=== PATIENT | male | born 1965 | race Two or more races ===

== ENCOUNTER 2020-10-18 18:39 | Emergency (ER) | payer MEDICAID ==
[~2020-10-18] VITALS: Ht 177.8 cm; Wt 104.3 kg
--- NOTE | 2020-10-18 18:39 | NUR ---
PT BIBRA 839 FROM HOME C/O R HIP PAIN S/P GLF LAST NIGHT. PT IS AAOX4, NOT IN RESPIRATORY DISTRESS, HOOKED TO MARKETING COMMUNICATIONS ASSISTANT, KEPT RESTED AND COMFORTABLE. WILL CONTINUE TO MONITOR.
--- NOTE | 2020-10-18 18:51 | NUR ---
PT SEEN AND EXAMINED BY LEANN LYNCH.
[2020-10-18] MEDS ORDERED: ONDANSETRON HCL/PF 4 MG/2 ML VIAL ONE (18:54)
[2020-10-18] MEDS ORDERED: MORPHINE SULFATE INJ 4 MG/ML DISP.SYRIN ONE (18:55)
[2020-10-18] MEDS ORDERED: MORPHINE SULFATE INJ 2 MG/ML DISP.SYRIN IV ONE (19:00)
[2020-10-18] MEDS ORDERED: ONDANSETRON HCL/PF 4 MG/2 ML VIAL IV ONE (19:00)
--- NOTE | 2020-10-18 19:00 | NUR ---
IV LINE ESTABLISHED BLOOD DRAWN AND SENT TO LAB.
--- NOTE | 2020-10-18 20:28 | NUR ---
PA at the bedside
[2020-10-18] MEDS ORDERED: TRAM50TA2 PO (20:30)
[2020-10-18] MEDS ORDERED: ACET-2605 PO (20:30)
--- NOTE | 2020-10-18 20:45 | NUR ---
Called [facility] for a transportation per pt requested. Spoke Greg with [facility]. Greg informed the ride will be between 30 min to 3 hours. Ref # [id number]. Will call back in 30 min
[2020-10-18 21:39] VITALS: BP 115/60
--- NOTE | 2020-10-18 21:40 | NUR ---
Patient discharged to home in stable condition. Written and verbal after care instructions given. Patient verbalizes understanding of instruction. Pt ambulatory with a steady gait. IV removed. Catheter intact and site benign. Pressure and 4x4 applied to site. No bleeding noted.
== END 2020-10-18 21:40 | disposition home or self-care (01) ==
LOC: ER 18:39
DX: M25.551 Pain in right hip (principal); I10 Essential (primary) hypertension; J44.9 Chronic obstructive pulmonary disease, unspecified; E11.9 Type 2 diabetes mellitus without complications; Z79.899 Other long term (current) drug therapy; W01.0XXA Fall on same level from slipping, tripping and stumbling without subsequent striking against object, initial encounter; Y93.89 Activity, other specified; Y92.89 Other specified places as the place of occurrence of the external cause; Y99.8 Other external cause status
CPT/HCPCS: 73502; 73552; 96374; 96375; 99284; J2270; J2405

== ENCOUNTER 2020-10-23 13:32 | Emergency (ER) | payer MEDICAID ==
[~2020-10-23] VITALS: Ht 175.3 cm; Wt 104.3 kg
[~2020-10-23 13:32] MED LIST: ACET-2605 PO; TRAM50TA2 PO
--- NOTE | 2020-10-23 13:53 | NUR ---
DEQUAN BEAR from Home generalized weakness. High BS-250. On room air, breathing evenly and unlabored. Connected to the monitor and pulse ox. kept comfortable, will continue to monitor accordingly.
[2020-10-23 13:54] LABS: BASOPHILS % (AUTO) 0.5 % (0.0-2.0); EOSINOPHILS % (AUTO) 3.8 % (0.0-6.0); HEMATOCRIT 37 % (39-51); HEMOGLOBIN 11.9 g/dL (13.5-17.5); LYMPHOCYTES # (AUTO) 1.4 /CMM (0.8-4.8); LYMPHOCYTES % (AUTO) 15.5 % (20.0-44.0); MEAN CORPUSCULAR HGB CONC 33 g/dl (31.0-36.0); MEAN CORPUSCULAR VOLUME 88 fL (80-96); MONOCYTES % (AUTO) 11.6 % (2.0-12.0); NEUTROPHILS % (AUTO) 68.6 % (43.0-81.0); PLATELET COUNT (AUTO) 323 /CMM (150-450); RED BLOOD CELL COUNT(AUTO) 4.15 MIL/uL (4.5-6.0); WHITE BLOOD COUNT (AUTO) 8.8 K/uL (4.3-11.0)
[2020-10-23 14:00] LABS: CALCIUM, SERUM 9.1 mg/dL (8.5-10.1); CARBON DIOXIDE 26 mmol/L (21-32); CHLORIDE 100 mmol/L (98-107); CREATININE 0.8 mg/dL (0.6-1.3); GLUCOSE 271 mg/dL (74-106); POTASSIUM 4.3 mmol/L (3.5-5.1); SODIUM SERUM 135 mmol/L (136-145); UREA NITROGEN, BLOOD 24 mg/dL (7-18)
[2020-10-23] MEDS ORDERED: IV NS 0.9% 1,000 ML BAG IV ONE (14:00)
[2020-10-23 14:07] LABS: ALANINE AMINOTRANSFERASE 42 U/L (12-78); ALBUMIN 3.4 g/dL (3.4-5.0); ALKALINE PHOSPHATASE 138 U/L (46-116); ASPARTATE AMINOTRANSFERASE 21 U/L (15-37); BILIRUBIN,TOTAL 0.1 mg/dL (0.2-1.0); LIPASE 125 U/L (73-393); TOTAL PROTEIN, SERUM 7.3 g/dL (6.4-8.2)
[2020-10-23 15:40] VITALS: BP 128/77
--- NOTE | 2020-10-23 15:40 | NUR ---
Patient discharged to home in stable condition. Written and verbal after care instructions given. Patient verbalizes understanding of instruction.IV removed. Catheter intact and site benign. Pressure and 4x4 applied to site. No bleeding noted.
== END 2020-10-23 15:40 | disposition home or self-care (01) ==
LOC: ER 13:36
DX: E11.65 Type 2 diabetes mellitus with hyperglycemia (principal); I10 Essential (primary) hypertension; J44.9 Chronic obstructive pulmonary disease, unspecified; Z79.899 Other long term (current) drug therapy
CPT/HCPCS: 36415; 80048; 80076; 83690; 84484; 85025; 93005; 96360; 99284; J7030

== ENCOUNTER 2020-10-25 19:32 | Emergency (ER) | payer MEDICAID ==
[~2020-10-25] VITALS: Ht 175.3 cm; Wt 104.3 kg
--- NOTE | 2020-10-25 19:35 | NUR ---
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 PATIENT A/OX 4, RR EVEN AND UNLABORED. PATIENT V/S ARE WNL. PATIENT IN NO ACUTE DISTESS. BS NOTED AT 384. WILL CONTINUE TO MONIOTR.
[2020-10-25 20:13] VITALS: BP 130/68
--- NOTE | 2020-10-25 20:16 | NUR ---
Patient discharged to home in stable condition. Written and verbal after care instructions given. Patient verbalizes understanding of instruction. ambulatory with a steady gait
== END 2020-10-25 20:16 | disposition home or self-care (01) ==
LOC: ER 19:33
DX: E11.65 Type 2 diabetes mellitus with hyperglycemia (principal); I10 Essential (primary) hypertension; J45.909 Unspecified asthma, uncomplicated
CPT/HCPCS: 82962-TC

== ENCOUNTER 2020-11-03 02:10 | Emergency (ER) | payer MEDICAID ==
[~2020-11-03] VITALS: Ht 177.8 cm; Wt 108.9 kg
[2020-11-03] MEDS ORDERED: MORPHINE SULFATE INJ 2 MG/ML DISP.SYRIN IV ONE (02:30)
[2020-11-03] MEDS ORDERED: MORPHINE SULFATE INJ 4 MG/ML DISP.SYRIN ONE (02:30)
[2020-11-03] MEDS ORDERED: ONDANSETRON HCL/PF 4 MG/2 ML VIAL IVP ONE (02:30)
[2020-11-03] MEDS ORDERED: ONDANSETRON 4 MG TAB.RAPDIS ONE (02:35)
[2020-11-03] MEDS ORDERED: ONDANSETRON 4 MG TAB.RAPDIS SL ONE (03:00)
[2020-11-03] MEDS ORDERED: MORPHINE SULFATE INJ 2 MG/ML DISP.SYRIN IM ONE (03:00)
[2020-11-03] MEDS ORDERED: HYDROMORPHONE 1 MG/1 ML DISP.SYRIN ONE (03:12)
[2020-11-03] MEDS ORDERED: HYDROMORPHONE 1 MG/1 ML DISP.SYRIN IM ONE (03:30)
[2020-11-03] MEDS ORDERED: HYDR-3976 PO ×2 (05:45)
--- NOTE | 2020-11-03 06:01 | NUR ---
Patient discharged to home in stable condition. Written and verbal after care instructions given. Patient verbalizes understanding of instruction.
--- NOTE | 2020-11-03 06:01 | NUR ---
CALLED FOR [employer], WILL BE HERE ETA 1~4HRS. [place] [facility] [place] [place] [id number]
--- NOTE | 2020-11-03 09:39 | NUR ---
BREAKFAST PROVIDED, WAITING FOR TRANSPORTATION.
--- NOTE | 2020-11-03 09:43 | NUR ---
CALLED TO FOLLOW UP ON TRANSFORT, I WAS INFORMED THAT IT WAS "CANELLED". ARRANGED A NEW TRANSPORT. RESERVATION NUMBER [id number] ETA 1245 FOLLOW UP NUMBER FOR TRANSPORT. [phone] RIDE ASSIST
--- NOTE | 2020-11-03 10:11 | NUR ---
PATIENT AMBULATORY WITH WALKER. NO DISTRESS NOTED.
[2020-11-03 11:54] VITALS: BP 148/54
--- NOTE | 2020-11-03 11:54 | NUR ---
Patient discharged to home in stable condition. Written and verbal after care instructions given. Patient verbalizes understanding of instruction.
== END 2020-11-03 11:55 | disposition home or self-care (01) ==
LOC: ER 02:11
DX: M54.5 Low back pain (principal); J44.9 Chronic obstructive pulmonary disease, unspecified; E11.9 Type 2 diabetes mellitus without complications; I10 Essential (primary) hypertension; Z79.899 Other long term (current) drug therapy
CPT/HCPCS: 72131; 96372 ×2; 99284; J1170; J2270; Q0162

== ENCOUNTER 2020-11-14 11:34 | Emergency (ER) | payer MEDICAID ==
[~2020-11-14] VITALS: Ht 175.3 cm; Wt 108.9 kg
[~2020-11-14 11:34] MED LIST changes: +HYDR-3976 PO
--- NOTE | 2020-11-14 11:36 | NUR ---
SEEN AND EXAMINED BY .
[2020-11-14] MEDS ORDERED: MORPHINE SULFATE INJ 4 MG/ML DISP.SYRIN ONE (11:38)
[2020-11-14 11:41] VITALS: BP 140/67
[2020-11-14] MEDS ORDERED: MORPHINE SULFATE INJ 2 MG/ML DISP.SYRIN IM ONE (12:00)
--- NOTE | 2020-11-14 12:42 | NUR ---
Patient discharged to home in stable condition. Written and verbal after care instructions given. Patient verbalizes understanding of instruction.
== END 2020-11-14 12:42 | disposition home or self-care (01) ==
LOC: ER 11:35
DX: M54.5 Low back pain (principal); G89.29 Other chronic pain; I10 Essential (primary) hypertension; J45.909 Unspecified asthma, uncomplicated; E11.9 Type 2 diabetes mellitus without complications
CPT/HCPCS: 96372; 99283; J2270

== ENCOUNTER 2020-12-05 00:13 | Emergency (ER) | payer OTHER ==
[~2020-12-05] VITALS: Ht 175.3 cm; Wt 108.9 kg
[2020-12-05 00:17] VITALS: BP 100/69
[2020-12-05] MEDS ORDERED: DEXAMETHASONE SOD PHOSPHATE 4 MG/ML VIAL IM ONE (00:30)
[2020-12-05] MEDS ORDERED: KETOROLAC TROMETHAMINE INJ 60 MG/2 ML VIAL IM ONE ×2 (00:30→00:36)
[2020-12-05] MEDS ORDERED: CARISOPRODOL 350 MG TABLET PO ONE (00:30)
[2020-12-05] MEDS ORDERED: DEXAMETHASONE SOD PHOSPHATE 10 MG/ML VIAL ONE (00:36)
[2020-12-05] MEDS ORDERED: CARISOPRODOL 350 MG TABLET ONE (00:36)
--- NOTE | 2020-12-05 00:43 | NUR ---
PT MEDICATED ORDERED.
--- NOTE | 2020-12-05 01:38 | NUR ---
TRANSPORTATION IS SET UP WITH [facility] [employer], [id number]. WITH [employer].
--- NOTE | 2020-12-05 01:47 | NUR ---
Patient is ambulatory with a steady gait with and without the walker.
--- NOTE | 2020-12-05 01:47 | NUR ---
Patient discharged to home in stable condition. Written and verbal after care instructions given. Patient verbalizes understanding of instruction.
== END 2020-12-05 01:48 | disposition home or self-care (01) ==
LOC: ER 00:18
DX: G89.29 Other chronic pain (principal); M54.5 Low back pain; I10 Essential (primary) hypertension; J44.9 Chronic obstructive pulmonary disease, unspecified; E11.9 Type 2 diabetes mellitus without complications; Z79.899 Other long term (current) drug therapy
CPT/HCPCS: 96372 ×2; 99284; J1100; J1885

== ENCOUNTER 2021-01-22 18:27 | Emergency (ER) | payer OTHER ==
[~2021-01-22] VITALS: Ht 177.8 cm; Wt 104.3 kg
--- NOTE | 2021-01-22 18:38 | NUR ---
TO ER BED 4, C/O BACK PAIN WHILE WAITING FOR UBER, SEEN BY
[2021-01-22] MEDS ORDERED: MORPHINE SULFATE INJ 2 MG/ML DISP.SYRIN IM ONE (19:00)
[2021-01-22] MEDS ORDERED: MORPHINE SULFATE INJ 4 MG/ML DISP.SYRIN ONE (19:09)
[2021-01-22] MEDS ORDERED: MORPHINE SULFATE INJ 2 MG/ML DISP.SYRIN ONE (19:09)
--- NOTE | 2021-01-22 19:22 | NUR ---
GAVE REPORT TO SILVESTRE BONE RN FOR DANIEL
--- NOTE | 2021-01-22 19:41 | NUR ---
Patient discharged to home in stable condition. Written and verbal after care instructions given. Patient verbalizes understanding of instruction. Pt ambulatory with a steady gait
--- NOTE | 2021-01-22 19:55 | NUR ---
CALLED [facility]. AWAITING CALL BACK FROM TRANSPORTATION [employer]. REF # [id number]
--- NOTE | 2021-01-22 21:07 | NUR ---
asc taxi 10-20 min eta
--- NOTE | 2021-01-22 22:02 | NUR ---
called [facility], unable to provide eta "food mobile driver not available" but to call back in 25 min
[2021-01-22 22:44] VITALS: BP 132/98
--- NOTE | 2021-01-22 23:16 | NUR ---
DAISHA HANNAH FROM [facility] ETA 15-20MIN.
--- NOTE | 2021-01-22 23:26 | NUR ---
pt left the hospital before the taxi transportation arrived.
== END 2021-01-22 20:00 | disposition home or self-care (01) ==
LOC: ER 18:43
DX: M54.5 Low back pain (principal); G89.29 Other chronic pain; I10 Essential (primary) hypertension; J44.9 Chronic obstructive pulmonary disease, unspecified; E11.9 Type 2 diabetes mellitus without complications; E66.9 Obesity, unspecified; Z68.33 Body mass index [BMI] 33.0-33.9, adult; Z79.899 Other long term (current) drug therapy; Z96.651 Presence of right artificial knee joint
CPT/HCPCS: 72131; 96372; 99284; J2270 ×2

== ENCOUNTER 2021-02-16 11:50 | Emergency (ER) | payer OTHER ==
[~2021-02-16] VITALS: Ht 154.9 cm; Wt 106.6 kg
--- NOTE | 2021-02-16 12:10 | NUR ---
[id number] FRM RALPHS C/O LOWER BACK PAIN AND SPASMS. DENIES ANY TRAUMA. THE PATIENT RATES BACK PAIN 8/10. NO APPARENT TRAUMA NOTED. IN ROOM AIR AND DENIES SOB. RESPIRATION REGULAR AND UNLABORED. WILL CONTINUE TO MONITOR THE PATIENT.
[2021-02-16] MEDS ORDERED: CYCLOBENZAPRINE 10 MG TABLET ONE (12:18)
[2021-02-16] MEDS ORDERED: KETOROLAC TROMETHAMINE INJ 30 MG/ML VIAL ONE (12:18)
--- NOTE | 2021-02-16 12:24 | NUR ---
MEDICATED THE PATIENT PER ORDER. WILL CONTINUE TO MONITOR
[2021-02-16] MEDS ORDERED: TRAMADOL HCL 50 MG TABLET PO ONE (12:30)
[2021-02-16] MEDS ORDERED: CYCLOBENZAPRINE 10 MG TABLET PO ONE (12:30)
[2021-02-16] MEDS ORDERED: KETOROLAC TROMETHAMINE INJ 60 MG/2 ML VIAL IM ONE (12:30)
[2021-02-16] MEDS ORDERED: TRAMADOL HCL 50 MG TABLET ONE (12:35)
[2021-02-16] MEDS ORDERED: HYDROMORPHONE INJ 2 MG/ML DISP.SYRIN IM ONE (13:00)
[2021-02-16] MEDS ORDERED: HYDROMORPHONE INJ 2 MG/ML DISP.SYRIN ONE (13:00)
[2021-02-16 14:06] VITALS: BP 132/86
--- NOTE | 2021-02-16 14:06 | NUR ---
Patient discharged to home in stable condition. Written and verbal after care instructions given. Patient verbalizes understanding of instruction.
== END 2021-02-16 14:06 | disposition home or self-care (01) ==
LOC: ER 11:55
DX: G89.29 Other chronic pain (principal); M54.5 Low back pain; I10 Essential (primary) hypertension; J44.9 Chronic obstructive pulmonary disease, unspecified; E11.9 Type 2 diabetes mellitus without complications; Z98.890 Other specified postprocedural states; Z79.899 Other long term (current) drug therapy
CPT/HCPCS: 96372 ×2; 99284; J1170; J1885

== ENCOUNTER 2021-04-16 21:32 | Emergency (ER) | payer MEDICAID, OTHER ==
[~2021-04-16] VITALS: Ht 177.8 cm; Wt 108.9 kg
--- NOTE | 2021-04-16 21:44 | NUR ---
PT BIB EMS C/O SEVERE BACK PAIN 10/10 THAT RADIATES TO UPPER ABD. PT HAS HISTORY OF CHRONIC BACK PAIN AND IS SUPPOSED TO HAVE CORRECTIVE SURGERY NEXT MONTH. CHRONIC ABD HERNIA NOTED WELL. PT PLACED ON THE MONITOR ALL VITALS STABLE. MD WAS AT BEDSIDE FOR EVAL.
[2021-04-16] MEDS ORDERED: CYCLOBENZAPRINE 10 MG TABLET ONE (22:16)
[2021-04-16] MEDS ORDERED: KETOROLAC TROMETHAMINE INJ 30 MG/ML VIAL ONE ×2 (22:16→22:59)
[2021-04-16] MEDS ORDERED: KETOROLAC TROMETHAMINE INJ 30 MG/ML VIAL IM ONE ×2 (22:30→23:00)
[2021-04-16] MEDS ORDERED: CYCLOBENZAPRINE 10 MG TABLET PO ONE (22:30)
[2021-04-16] MEDS ORDERED: CYCL5TAB PO (22:41)
[2021-04-16] MEDS ORDERED: IBUP-1957 PO (22:41)
[2021-04-16] MEDS ORDERED: ACETAMINOPHEN ES 500 MG TABLET ONE (22:59)
[2021-04-16] MEDS ORDERED: ACETAMINOPHEN ES 500 MG TABLET PO ONE (23:00)
--- NOTE | 2021-04-16 23:31 | NUR ---
Patient discharged to home in stable condition. Written and verbal after care instructions given. Patient verbalizes understanding of instruction.
[2021-04-16 23:36] VITALS: BP 166/83
--- NOTE | 2021-04-16 23:57 | NUR ---
[facility]SPORT [facility] TRIP # [id number]
== END 2021-04-16 23:36 | disposition home or self-care (01) ==
LOC: ER 21:36
DX: G89.29 Other chronic pain (principal); M54.50 Low back pain, unspecified; I10 Essential (primary) hypertension; J44.9 Chronic obstructive pulmonary disease, unspecified; E11.9 Type 2 diabetes mellitus without complications; Z98.890 Other specified postprocedural states; Z79.899 Other long term (current) drug therapy
CPT/HCPCS: 96372 ×2; 99284; J1885 ×2

== ENCOUNTER 2021-09-17 08:12 | Inpatient (IN) | payer MEDICAID ==
[~2021-09-17] VITALS: Ht 177.8 cm; Wt 119.7 kg
[~2021-09-17 08:12] MED LIST changes: +CYCL5TAB PO; +IBUP-1957 PO
[2021-09-17] MEDS ORDERED: IV NS 0.9% 1,000 ML BAG IV ONE (08:30)
--- NOTE | 2021-09-17 08:30 | NUR ---
DEQUAN [facility] [address] "dizzy- fell hit head on wall +LOC". AAOX3 COMPLAINS OF HEADACHE, BACK AND CHEST PAIN
--- NOTE | 2021-09-17 08:40 | NUR ---
SALINE LOCK ESTABLISHED, BLOOD DRAWN AND SENT TO LAB
[2021-09-17 08:50] LABS: BASOPHILS % (AUTO) 0.4 % (0.0-2.0); EOSINOPHILS % (AUTO) 3.3 % (0.0-6.0); HEMATOCRIT 36 % (39-51); HEMOGLOBIN 11.5 g/dL (13.5-17.5); MEAN CORPUSCULAR HGB CONC 32 g/dl (31.0-36.0); MEAN CORPUSCULAR VOLUME 79 fL (80-96); MONOCYTES # (AUTO) 1.1 K/uL (0.1-1.30); MONOCYTES % (AUTO) 10.6 % (2.0-12.0); NEUTROPHILS # (AUTO) 6.7 K/uL (1.8-8.9); NEUTROPHILS % (AUTO) 65.7 % (43.0-81.0); PLATELET COUNT (AUTO) 320 K/uL (150-450); RED BLOOD CELL COUNT(AUTO) 4.61 MIL/uL (4.5-6.0); WHITE BLOOD COUNT (AUTO) 10.2 K/uL (4.3-11.0)
[2021-09-17 09:11] LABS: CALCIUM, SERUM 8.2 mg/dL (8.5-10.1); CARBON DIOXIDE 27 mmol/L (21-32); CHLORIDE 102 mmol/L (98-107); CREATININE 0.8 mg/dL (0.6-1.3); GLUCOSE 260 mg/dL (74-106); SODIUM SERUM 138 mmol/L (136-145); UREA NITROGEN, BLOOD 14 mg/dL (7-18)
[2021-09-17 09:18] LABS: ALANINE AMINOTRANSFERASE 64 U/L (12-78); ALBUMIN 3.3 g/dL (3.4-5.0); ALKALINE PHOSPHATASE 110 U/L (46-116); ASPARTATE AMINOTRANSFERASE 30 U/L (15-37); BILIRUBIN,DIRECT 0.1 mg/dL (0.0-0.2); BILIRUBIN,TOTAL 0.2 mg/dL (0.2-1.0); TOTAL PROTEIN, SERUM 7.3 g/dL (6.4-8.2)
--- NOTE | 2021-09-17 09:18 | NUR ---
SWAB FOR COVID 19 SENT TO LAB
[2021-09-17] MEDS ORDERED: BUPR100T6 PO (09:32)
[2021-09-17] MEDS ORDERED: METO25TA6 PO (09:32)
[2021-09-17] MEDS ORDERED: METF-440 PO (09:32)
[2021-09-17] MEDS ORDERED: MULT-439 PO (09:32)
[2021-09-17] MEDS ORDERED: METH-649 PO (09:32)
[2021-09-17] MEDS ORDERED: INSU100V42 (09:32)
[2021-09-17] MEDS ORDERED: ASCO500C17 PO (09:32)
[2021-09-17] MEDS ORDERED: DOCU-141 PO (09:32)
[2021-09-17] MEDS ORDERED: TAMS-12 PO (09:32)
[2021-09-17] MEDS ORDERED: GABA800T11 PO (09:32)
[2021-09-17] MEDS ORDERED: CRAN425C6 PO (09:32)
[2021-09-17] MEDS ORDERED: CRAN3875 PO (09:32)
[2021-09-17] MEDS ORDERED: MELA5TAB PO (09:32)
[2021-09-17] MEDS ORDERED: HYDR4TAB57 PO (09:32)
[2021-09-17] MEDS ORDERED: CHOL100045 PO (09:32)
[2021-09-17] MEDS ORDERED: TRAZ150T75 PO (09:32)
[2021-09-17] MEDS ORDERED: PANT40TA49 PO (09:32)
[2021-09-17] MEDS ORDERED: INSU100V42 SUBCUT (09:32)
--- NOTE | 2021-09-17 09:35 | NUR ---
PATIENT WENT FOR CT HEAD, CERVICAL VIA [facility]
--- NOTE | 2021-09-17 10:00 | NUR ---
PATIENT COMPLAINS OF BACK DONNA 03/21. AWARE
[2021-09-17] MEDS ORDERED: HYDROCODONE/APAP 10/325MG TABLET ONE (10:20)
[2021-09-17] MEDS ORDERED: HYDROCODONE/APAP 10/325MG TABLET PO ONE (10:30)
--- NOTE | 2021-09-17 10:47 | NUR ---
PATIENT REFUSES TO RAISE SIDE RAIL OF THE BED BECAUSE HE WANTED SIT FROM TIME TO TIME VERBALIZED.
--- NOTE | 2021-09-17 14:11 | NUR ---
NURSING SUP GAVE TELE BED 327-2.
--- NOTE | 2021-09-17 14:40 | NUR ---
Nurse Knowledge Exchvanesa w/RN Wesley. NO acute changes- NO obvious distress. VSS. Transport to room per benjamin w/JASMINE Del Cid
[2021-09-17] MEDS ORDERED: DEXTROSE 50%-WATER 50 ML DISP.SYRIN IV PRN (15:00)
[2021-09-17] MEDS ORDERED: ACETAMINOPHEN 325 MG TABLET PO PRN (15:00)
[2021-09-17] MEDS ORDERED: ONDANSETRON HCL/PF 4 MG/2 ML VIAL IVP PRN (15:00)
[2021-09-17] MEDS: ENOXAPARIN SODIUM 40 MG/0.4 ML DISP.SYRIN SQ SCH ×2 (15:00→15:52)
--- NOTE | 2021-09-17 15:30 | NUR ---
AUTOMATION/CONTROLS MANAGER ADMITTING NOTE PATIENT BROUGHT TO UNIT VIA GURNEY AND TRANSFERRED TO BED WITHOUT INCIDENT. TELE MONITOR ATTACHED WITH ALL LEADS PROPERLY PLACED AND FUNCTIONING WELL, INITIAL ASSESSMENT PERFORMED, ALL NEEDS MET. TOLERATING WELL ON ROOM AIR AND PAIN MEDICATIONS ADMINISTERED. SAFETY MEASURES IN PLACE. WILL CONTINUE TO MONITOR.
[2021-09-17] MEDS: HYDROMORPHONE HCL 2 MG TABLET PO PRN ×2 (15:53→23:10)
--- NOTE | 2021-09-17 15:53 | NUR ---
TELEPHONE ANSWERER NOTE PATIENT REFUSED HALF (2MG) OF THE PRESCRIBED DILAUDED MEDICATION. THE REMAINING 2 MG DILAUDED WASTED VIA OMNICELL AND WITNESSED BY RN MEL SAGASTUME.
[2021-09-17] MEDS ORDERED: METHOCARBAMOL (750MG) 750 MG TABLET PO PRN (16:00)
[2021-09-17] MEDS: BLOOD SUGAR DIAGNOSTIC 1 EACH STRIP IN SCH ×2 (17:51→21:00)
[2021-09-17] MEDS: GABAPENTIN 400 MG CAPSULE PO SCH (17:53)
[2021-09-17] MEDS: INSULIN REGULAR, HUMAN 100 UNIT/ML 3 ML VIAL SQ PRN ×2 (17:54→22:14)
[2021-09-17] MEDS: METOPROLOL TARTRATE 25 MG TABLET PO SCH (17:55)
--- NOTE | 2021-09-17 19:00 | NUR ---
TAX SERVICES SPECIALIST CLOSING NOTE PATIENT IS AWAKE IN BED. A/OX4. NO S/S OF DISTRESS; BREATHING WITHOUT DIFFICULTY ON RM AIR. RH #20 SL INTACT AND PATENT. TELE MONITOR REVEALS SR 102. SAFETY MEASURES IN PLACE: BED AT LOWEST POSITION, LOCKED, RAILS UP X3, CALL ASH WITHIN REACH. WILL ENDORSE TO BAND SEWER FOR DANIEL.
--- NOTE | 2021-09-17 19:37 | NUR ---
TALENT ADVISOR OPENING NOTE PATIENT IS AWAKE IN BED. A/OX4. NO S/S OF DISTRESS; BREATHING WITHOUT DIFFICULTY ON RM AIR. RH #20 SL INTACT AND PATENT. TELE MONITOR REVEALS SR 100. SAFETY MEASURES IN PLACE: BED AT LOWEST POSITION, LOCKED, RAILS UP X3, CALL ASH WITHIN REACH. WILL CONTINUE TO MONITOR PATIENT.
[2021-09-17 20:00] VITALS: BP 134/52
[2021-09-17] MEDS ORDERED: TAMSULOSIN 0.4 MG CAP.SR.24H PO SCH (22:00)
[2021-09-17] MEDS ORDERED: TRAZODONE 50 MG TABLET PO SCH (22:00)
[2021-09-17] MEDS ORDERED: INSULIN GLARGINE, 100 UNIT/ML CARTRIDGE SQ SCH (22:00)
[2021-09-18] VITALS: BP 123/74
[2021-09-18] MEDS: BLOOD SUGAR DIAGNOSTIC 1 EACH STRIP IN SCH ×5 (00:54→17:29)
[2021-09-18] MEDS: INSULIN REGULAR, HUMAN 100 UNIT/ML 3 ML VIAL SQ PRN ×5 (00:55→17:34)
[2021-09-18 04:00] VITALS: BP 128/62
[2021-09-18] MEDS: HYDROMORPHONE HCL 2 MG TABLET PO PRN (05:30)
[2021-09-18 06:18] LABS: BASOPHILS % (AUTO) 0.3 % (0.0-2.0); EOSINOPHILS % (AUTO) 3.5 % (0.0-6.0); HEMATOCRIT 38 % (39-51); HEMOGLOBIN 11.9 g/dL (13.5-17.5); LYMPHOCYTES # (AUTO) 2.1 K/uL (0.8-4.8); LYMPHOCYTES % (AUTO) 21.4 % (20.0-44.0); MEAN CORPUSCULAR HGB CONC 31 g/dl (31.0-36.0); MEAN CORPUSCULAR VOLUME 80 fL (80-96); MONOCYTES # (AUTO) 0.9 K/uL (0.1-1.30); MONOCYTES % (AUTO) 9.5 % (2.0-12.0); NEUTROPHILS # (AUTO) 6.4 K/uL (1.8-8.9); NEUTROPHILS % (AUTO) 65.3 % (43.0-81.0); PLATELET COUNT (AUTO) 322 K/uL (150-450); RED BLOOD CELL COUNT(AUTO) 4.75 MIL/uL (4.5-6.0); WHITE BLOOD COUNT (AUTO) 9.7 K/uL (4.3-11.0)
[2021-09-18 06:53] LABS: ALBUMIN 3.3 g/dL (3.4-5.0); BILIRUBIN,TOTAL 0.3 mg/dL (0.2-1.0); CALCIUM, SERUM 8.5 mg/dL (8.5-10.1); CREATININE 0.8 mg/dL (0.6-1.3); MAGNESIUM 2.3 mg/dL (1.8-2.4); PHOSPHORUS 3.9 mg/dL (2.5-4.9); POTASSIUM 3.8 mmol/L (3.5-5.1); TOTAL PROTEIN, SERUM 7.4 g/dL (6.4-8.2)
--- NOTE | 2021-09-18 06:56 | NUR ---
SCRAPE GATHERER CLOSING NOTES PATIENT AWAKE IN BED. A/OX4. NO S/S OF DISTRESS; BREATHING ON RM AIR W/O DIFFICULTY. RH #20 SL INTACT AND PATENT. TELE MONITOR REVEALS SR 96. SAFETY MEASURES IN PLACE: BED AT LOWEST POSITION, LOCKED, RAILS UP X3, CALL ASH WITHIN REACH. WILL ENDORSE TO NEXT SHIFT FOR DANIEL.
[2021-09-18] MEDS ORDERED: PANTOPRAZOLE 40 MG TABLET.DR PO SCH (07:30)
[2021-09-18 08:00] VITALS: BP 148/77
--- NOTE | 2021-09-18 08:13 | NUR ---
RN OPENING NOTE PATIENT RECEIVED IN BED, AO x 4, ABLE TO RESPONDS ALL STIMULI. IN NO ACUTE DISTRESS NOTED. RESPIRATORY EVEN AND UNLABORED ON ROOM AIR. SKIN IS WARM TO TOUCH, KEEP CLEAN/DRY, INTACT IV SITE. KEPT ELEVATED HOB FOR ENSURE AIRWAY AND ASPIRATION PRECAUTION, ALSO LOWEST POSITION OF THE BED, S/R UP X 3, ALL SAFETY PRECAUTION APPLIED. CALL LIGHT WITHIN REACH, WILL CONTINUE TO MONITOR.
[2021-09-18] MEDS ORDERED: buPROPion SR 100 MG TABLET.ER PO SCH (09:00)
[2021-09-18 09:07] LABS: THYROID STIMULATING HORMONE 2.02 uIU/mL (0.358-3.74)
[2021-09-18] MEDS: GABAPENTIN 400 MG CAPSULE PO SCH ×3 (09:28→17:31)
[2021-09-18] MEDS: METOPROLOL TARTRATE 25 MG TABLET PO SCH ×2 (09:28→17:31)
[2021-09-18 12:00] VITALS: BP 126/78
[2021-09-18] MEDS: ENOXAPARIN SODIUM 40 MG/0.4 ML DISP.SYRIN SQ SCH (14:56)
[2021-09-18 16:07] VITALS: BP 130/62
--- NOTE | 2021-09-18 16:09 | NUR ---
[facility] GIVEN REPORT AHSAN/RN INCLUDE SEAT MENDER TIME.
[2021-09-18 17:31] VITALS: BP 130/62
[2021-09-20] MEDS ORDERED: METFORMIN 500 MG TABLET PO SCH (09:00)
== END 2021-09-18 18:00 | DRG 48 ==
LOC: ER 08:13 → MED 14:31 → TELE 15:16
PROVIDERS: ADMIT Nurse Practitioner Acute Care; ATTEND Nurse Practitioner Acute Care
DX: G90.8 Other disorders of autonomic nervous system (principal); S09.90XA Unspecified injury of head, initial encounter; D50.9 Iron deficiency anemia, unspecified; E11.65 Type 2 diabetes mellitus with hyperglycemia; E66.01 Morbid (severe) obesity due to excess calories; G89.4 Chronic pain syndrome; Z68.37 Body mass index [BMI] 37.0-37.9, adult; Z20.822 Contact with and (suspected) exposure to COVID-19; J44.9 Chronic obstructive pulmonary disease, unspecified; I10 Essential (primary) hypertension; J45.909 Unspecified asthma, uncomplicated; Z98.890 Other specified postprocedural states; Z79.84 Long term (current) use of oral hypoglycemic drugs; Z79.4 Long term (current) use of insulin; Z79.899 Other long term (current) drug therapy; I25.10 Atherosclerotic heart disease of native coronary artery without angina pectoris; M19.90 Unspecified osteoarthritis, unspecified site; M47.812 Spondylosis without myelopathy or radiculopathy, cervical region; W19.XXXA Unspecified fall, initial encounter; Y92.9 Unspecified place or not applicable
CPT/HCPCS: 36415; 70450-TC; 71100-TC; 72125-TC; 80048-TC; 80053-TC; 80061-TC; 80076-TC; 82962-TC; 83735-TC; 83880; 84100-TC; 84443-TC; 84484-TC; 85025-TC; 87081-TC; 93307-TC; 93880-TC; 97116-TC; 97530-TC; C9803; G0378; G0480; J1650; J1815; J7030

== ENCOUNTER 2022-01-27 14:27 | Emergency (ER) | payer MEDICAID ==
[~2022-01-27] VITALS: Ht 177.8 cm; Wt 113.4 kg
[~2022-01-27 14:27] MED LIST changes: +ASCO500C17 PO; +BUPR100T6 PO; +CHOL100045 PO; +CRAN3875 PO; +CRAN425C6 PO; -CYCL5TAB PO; +DOCU-141 PO; +GABA800T11 PO; -HYDR-3976 PO; +HYDR4TAB57 PO; -IBUP-1957 PO; +INSU100V42; +INSU100V42 SUBCUT; +MELA5TAB PO; +METF-440 PO; +METH-649 PO; +METO25TA6 PO; +MULT-439 PO; +PANT40TA49 PO; +TAMS-12 PO; -TRAM50TA2 PO; +TRAZ150T75 PO
--- NOTE | 2022-01-27 14:40 | NUR ---
ROMA 78 FROM [facility] W/ C/O LOWER BACK PAIN, FENTANYL 100MCG GIVEN ON SCENE HELICOPTER REPAIRER. TO ER BED 12.
--- NOTE | 2022-01-27 16:00 | NUR ---
DR COREY AT BEDSIDE FOR EVAL
--- NOTE | 2022-01-27 16:10 | NUR ---
[facility] CALLED FOR TRANSPORT WITH ETA OF 60 MINS PER NEREYDA
[2022-01-27] MEDS ORDERED: PRED20TA PO (16:24)
--- NOTE | 2022-01-27 17:04 | NUR ---
PER PT, HE CURRENTLY RESIDES AT [facility] PT, ADDRESS: [address] [facility], [place] [address]
--- NOTE | 2022-01-27 17:39 | NUR ---
Patient discharged to [facility], in stable condition, accompanied by 2 gas welding equipment mechanic. Written and verbal after care instructions given. Patient verbalizes understanding of instruction.
[2022-01-27 17:40] VITALS: BP 138/70
== END 2022-01-27 17:41 ==
LOC: ER 14:48
DX: G89.29 Other chronic pain (principal); M54.50 Low back pain, unspecified; I10 Essential (primary) hypertension; J44.9 Chronic obstructive pulmonary disease, unspecified; E11.9 Type 2 diabetes mellitus without complications; Z98.890 Other specified postprocedural states; Z79.899 Other long term (current) drug therapy; Z79.84 Long term (current) use of oral hypoglycemic drugs; Z79.4 Long term (current) use of insulin

== ENCOUNTER 2022-02-12 11:56 | Emergency (ER) | payer MEDICAID ==
[~2022-02-12] VITALS: Ht 170.2 cm; Wt 108.9 kg
[~2022-02-12 11:56] MED LIST changes: +PRED20TA PO
[2022-02-12] MEDS ORDERED: CYCLOBENZAPRINE 10 MG TABLET PO ONE (13:00)
[2022-02-12] MEDS ORDERED: KETOROLAC TROMETHAMINE INJ 60 MG/2 ML VIAL IM ONE (13:00)
[2022-02-12] MEDS ORDERED: KETOROLAC TROMETHAMINE INJ 30 MG/ML VIAL ONE (13:09)
[2022-02-12] MEDS ORDERED: CYCLOBENZAPRINE 10 MG TABLET ONE (13:09)
--- NOTE | 2022-02-12 13:38 | NUR ---
DEQUAN RA39 "Chronic Back Pain had spasm while out shopping". PLACED ON BED, AAOX4, IN PAIN 10/10 PS, PATIENT IS ABLE TO WALK.
[2022-02-12] MEDS ORDERED: DIAZEPAM 10 MG TABLET ONE (13:44)
[2022-02-12] MEDS ORDERED: DIAZEPAM 5 MG TABLET PO ONE (14:00)
[2022-02-12] MEDS ORDERED: oxyCODONE/APAP (5/325 MG) 1 UDTAB TABLET PO ONE (14:30)
[2022-02-12] MEDS ORDERED: oxyCODONE/APAP (5/325 MG) 1 UDTAB TABLET ONE (14:34)
[2022-02-12] MEDS ORDERED: LIDO700A30 TP (14:43)
[2022-02-12] MEDS ORDERED: NAPR-1164 PO (14:43)
[2022-02-12] MEDS ORDERED: CYCL5TAB PO (14:43)
[2022-02-12 15:01] VITALS: BP 128/88
--- NOTE | 2022-02-12 15:02 | NUR ---
Patient discharged to home in stable condition. Written and verbal after care instructions given. Patient verbalizes understanding of instruction.
== END 2022-02-12 15:01 | disposition home or self-care (01) ==
LOC: ER 12:01
DX: G89.29 Other chronic pain (principal); M54.50 Low back pain, unspecified; I10 Essential (primary) hypertension; J44.9 Chronic obstructive pulmonary disease, unspecified; E11.9 Type 2 diabetes mellitus without complications; Z79.4 Long term (current) use of insulin
CPT/HCPCS: 99284; 96372; J1885

== ENCOUNTER → 2022-03-15 | Emergency (ER) | payer MEDICAID ==
[~2022-03-15] VITALS: Ht 170.2 cm; Wt 109.3 kg
[~2022-03-15] MED LIST changes: +CYCL5TAB PO; +KETOROLAC TROMETHAMINE INJ 30 MG/ML VIAL ONE; +KETOROLAC TROMETHAMINE INJ 60 MG/2 ML VIAL IM ONE; +LIDO700A30 TP; +NAPR-1164 PO
[2022-03-15 15:48] VITALS: BP 139/88
--- NOTE | 2022-03-15 16:16 | NUR ---
Patient discharged to home in stable condition. Written and verbal after care instructions given. Patient verbalizes understanding of instruction.
== END | disposition home or self-care (01) ==
LOC: ER 15:46
DX: G89.29 Other chronic pain (principal); M54.50 Low back pain, unspecified; I10 Essential (primary) hypertension; J45.909 Unspecified asthma, uncomplicated; J44.9 Chronic obstructive pulmonary disease, unspecified; E11.9 Type 2 diabetes mellitus without complications; Z79.899 Other long term (current) drug therapy
CPT/HCPCS: 99283; 96372; J1885

== ENCOUNTER 2022-09-07 18:50 | Emergency (ER) | payer MEDICAID ==
[~2022-09-07] VITALS: Ht 177.8 cm; Wt 104.3 kg
[~2022-09-07 18:50] MED LIST changes: -KETOROLAC TROMETHAMINE INJ 30 MG/ML VIAL ONE; -KETOROLAC TROMETHAMINE INJ 60 MG/2 ML VIAL IM ONE
--- NOTE | 2022-09-07 19:07 | NUR ---
BIB [facility] PAIN AND SWOLLEN LEFT FOREAM JAMMED TRUNK LID. IN PAIN 12/19. NOT IN CR DISTRESS AMBULATORY WITH WALKER COOPERATIVE AOX4 NURSINNG DONE EMD MADE AWARE. WAITING FOR MD ORDERS
[2022-09-07] MEDS ORDERED: CYCLOBENZAPRINE 10 MG TABLET ONE (19:26)
[2022-09-07] MEDS ORDERED: KETOROLAC TROMETHAMINE INJ 30 MG/ML VIAL ONE (19:26)
[2022-09-07] MEDS ORDERED: KETOROLAC TROMETHAMINE INJ 30 MG/ML VIAL IM ONE (19:30)
[2022-09-07] MEDS ORDERED: CYCLOBENZAPRINE 10 MG TABLET PO ONE (19:30)
[2022-09-07] MEDS ORDERED: CYCL5TAB PO (20:44)
[2022-09-07] MEDS ORDERED: KETO10TA2 PO (20:44)
--- NOTE | 2022-09-07 20:51 | NUR ---
Patient discharged to home in stable condition. Written and verbal after care instructions given. Patient verbalizes understanding of instruction.
--- NOTE | 2022-09-07 20:55 | NUR ---
[facility] CALLED FOR BLS TRANSPORT. ETA 45 MINUTES.
--- NOTE | 2022-09-07 21:13 | NUR ---
REPORT GIVEN TO EMS.
[2022-09-08 01:32] VITALS: BP 129/82
== END 2022-09-07 21:20 | disposition home or self-care (01) ==
LOC: ER 19:53
DX: S50.12XA Contusion of left forearm, initial encounter (principal); I10 Essential (primary) hypertension; J44.9 Chronic obstructive pulmonary disease, unspecified; E11.9 Type 2 diabetes mellitus without complications; Z79.4 Long term (current) use of insulin; Z79.84 Long term (current) use of oral hypoglycemic drugs; Z79.899 Other long term (current) drug therapy; Z98.890 Other specified postprocedural states; W22.8XXA Striking against or struck by other objects, initial encounter; Y93.89 Activity, other specified; Y92.89 Other specified places as the place of occurrence of the external cause; Y99.8 Other external cause status
CPT/HCPCS: 99283; 96372; 73090; J1885

== ENCOUNTER 2022-09-29 06:06 | Inpatient (IN) | payer MEDICAID ==
[~2022-09-29] VITALS: Ht 177.8 cm; Wt 104.3 kg
[~2022-09-29 06:06] MED LIST changes: +KETO10TA2 PO
--- NOTE | 2022-09-29 06:15 | NUR ---
PATIENT IS ATTACHED TO TRAFFIC RATE CLERK, VITALS CHECKED. CAME WITH IV PETER G18 ON LEFT AC. BLOOD DRAWN AND SENT TO LAB
--- NOTE | 2022-09-29 06:15 | NUR ---
BIBRA60 FROM [facility], CC OF MIDSTERNAL CHEST PAIN 03/21, NITRO SL 2X GIVEN SNF, ASPIRIN 324MG TINT LAYER, DIAPHORETIC, HAVING SEVERE BACK AND SACRAL PAIN
--- NOTE | 2022-09-29 06:20 | NUR ---
EKG DONE, STRIP ATTACHED TO CHART
--- NOTE | 2022-09-29 06:20 | NUR ---
BLOOD COLLECTED SENT TO LAB
--- NOTE | 2022-09-29 06:20 | NUR ---
BS- 273MG/DL
--- NOTE | 2022-09-29 06:30 | NUR ---
SEEN BY DR COREY AT BEDSIDE
[2022-09-29] MEDS ORDERED: HYDROMORPHONE MDV 1 MG in IV D5W 50 ML IV STA (06:32)
--- NOTE | 2022-09-29 06:45 | NUR ---
URINE SAMPLE COLLECTED SENT TO LAB
[2022-09-29] MEDS ORDERED: ACETAMINOPHEN 325 MG TABLET ONE (06:48)
[2022-09-29] MEDS ORDERED: HYDROMORPHONE 1 MG/1 ML DISP.SYRIN ONE (06:48)
[2022-09-29 06:53] LABS: BASOPHILS % (AUTO) 0.3 % (0.0-2.0); EOSINOPHILS % (AUTO) 2.3 % (0.0-6.0); HEMATOCRIT 36 % (39-51); HEMOGLOBIN 11.4 g/dL (13.5-17.5); LYMPHOCYTES # (AUTO) 2.4 K/uL (0.8-4.8); LYMPHOCYTES % (AUTO) 19.3 % (20.0-44.0); MEAN CORPUSCULAR HGB CONC 32 g/dl (31.0-36.0); MEAN CORPUSCULAR VOLUME 82 fL (80-96); MONOCYTES # (AUTO) 1.4 K/uL (0.1-1.30); MONOCYTES % (AUTO) 11.3 % (2.0-12.0); NEUTROPHILS # (AUTO) 8.5 K/uL (1.8-8.9); NEUTROPHILS % (AUTO) 66.8 % (43.0-81.0); PLATELET COUNT (AUTO) 406 K/uL (150-450); WHITE BLOOD COUNT (AUTO) 12.7 K/uL (4.3-11.0)
--- NOTE | 2022-09-29 06:59 | NUR ---
COVID ANTIGEN COLLECTED AND SENT TO LAB
[2022-09-29] MEDS ORDERED: ACETAMINOPHEN 325 MG TABLET PO ONE (07:00)
--- NOTE | 2022-09-29 07:10 | NUR ---
RECEIVED PT FROM CIRILO THOMPSON AWAKE AND ALERT NO SOB
[2022-09-29 07:11] LABS: CALCIUM, SERUM 9.6 mg/dL (8.5-10.1); CARBON DIOXIDE 24 mmol/L (21-32); CHLORIDE 102 mmol/L (98-107); CREATININE 0.9 mg/dL (0.6-1.3); GLUCOSE 285 mg/dL (74-106); POTASSIUM 4.3 mmol/L (3.5-5.1); SODIUM SERUM 139 mmol/L (136-145); UREA NITROGEN, BLOOD 19 mg/dL (7-18)
--- NOTE | 2022-09-29 07:56 | NUR ---
[facility] PAGED
--- NOTE | 2022-09-29 08:30 | NUR ---
WATING FOR MONITER BED
--- NOTE | 2022-09-29 09:39 | NUR ---
BED GIVEN 324-2
--- NOTE | 2022-09-29 09:46 | NUR ---
REPORT GIVEN TO LOUISE FOR DANIEL
--- NOTE | 2022-09-29 10:02 | NUR ---
PT TRANSFERRED TO TELE FLOOR WITH ACLS PROTOCOLS IN PLACE
--- NOTE | 2022-09-29 10:15 | NUR ---
CITY PLANT SUPERVISOR NOTES RECEIVED PATIENT VIA CAPRIRGAUTAM. A/OX4. PATIENT IS BREATHING EVENLY AND UNLABORE. ON ROOM AIR. NO SIGNS OF DISTRESS NOTED. VITALS T- 98 BP- 104/43 WY-82 RR-19 SPO2 95%. PATIENT DENIES ANY PAIN OR DISCOMFORT AT THIS TIME. PATIENT ON TELE MONITOR. SKIN ASSESSMENT PERFORMED, THERE IS A SCAB ON LEFT LEG AND LEFT ANKLE, SCAB ON RIGHT LEG. PHOTO TAKEN AND FILED. NO EDEMA PRESENT. BOWEL SOUNDS ACTIVE. PATIENT HAS IV ACCESS ON LFA G#20, PATENT AND INTACT. PATIENT WAS ORIENTED TO ROOM AND HOW TO USE THE CALL LIGHT. BELONGINGS ACCOUNTED FOR. SAFETY MEASURES IN PLACE: BED IN LOW,LOCKED POSITION, SIDERAILS UP X2, CALL LIGHT WITHIN REACH. WILL CONTINUE TO MONITOR PATIENT.
[2022-09-29] MEDS ORDERED: HYDROCODONE/APAP 5/325MG TABLET PO ONE (11:00)
--- NOTE | 2022-09-29 11:15 | NUR ---
RN NOTES PATIENT COMPLAINED OF 7 OUT OF 10 PAIN ON HIS LOWER BACK. PATIENT ASKED FOR PAIN MEDICINE. NORCO 5-325 GIVEN.
[2022-09-29 11:55] LABS: THYROID STIMULATING HORMONE 1.217 uIU/mL (0.358-3.74)
[2022-09-29] MEDS ORDERED: KETOROLAC TROMETHAMINE 10 MG TABLET PO PRN (12:00)
[2022-09-29] MEDS ORDERED: LIDOCAINE 5% (PATCH) 1 EA PATCH TP PRN (12:00)
[2022-09-29] MEDS ORDERED: ACETAMINOPHEN ES 500 MG TABLET PO SCH (12:00)
[2022-09-29] MEDS ORDERED: METHOCARBAMOL (750MG) 750 MG TABLET PO PRN (12:00)
[2022-09-29] MEDS ORDERED: NAPROXEN 500 MG TABLET PO PRN (12:00)
[2022-09-29] MEDS ORDERED: ONDANSETRON HCL/PF 4 MG/2 ML VIAL IVP PRN (12:00)
[2022-09-29] MEDS ORDERED: Z GUARD REMEDY 4 OZ OINT TP PRN (12:00)
[2022-09-29] MEDS ORDERED: CYCLOBENZAPRINE 10 MG TABLET PO PRN (12:00)
[2022-09-29] MEDS ORDERED: DEXTROSE 50%-WATER 50 ML DISP.SYRIN IV PRN (12:00)
[2022-09-29] MEDS ORDERED: NITROGLYCERIN 0.4 MG/TAB BOTTLE SL PRN (12:30)
[2022-09-29] MEDS: ASPIRIN 81 MG TAB.CHEW PO SCH (12:39)
[2022-09-29] MEDS: GABAPENTIN 400 MG CAPSULE PO SCH ×2 (12:39→17:04)
[2022-09-29] MEDS: ENOXAPARIN SODIUM 40 MG/0.4 ML DISP.SYRIN SQ SCH (12:40)
[2022-09-29] MEDS: BLOOD SUGAR DIAGNOSTIC 1 EACH STRIP IN SCH ×3 (12:43→22:19)
[2022-09-29] MEDS: INSULIN REGULAR, HUMAN 100 UNIT/ML 3 ML VIAL SQ PRN ×3 (13:01→22:17)
[2022-09-29] MEDS ORDERED: IV NS 0.9% 250 ML IV ONE (13:15)
[2022-09-29] MEDS ORDERED: CT SWABBABLE VALVE TRANS SET 1 EA INFUS.SET MC ONE (13:15)
[2022-09-29] MEDS ORDERED: IOHEXOL-350 100 ML VIAL IV ONE (13:15)
--- NOTE | 2022-09-29 14:35 | NUR ---
RN NOTES PATIENT COMPLAINED PAIN ON HIS LOWER BACK AND RATE 3 OUT OF 10. ASKED FOR PAIN MEDICINE. NAPROXEN GIVEN.
[2022-09-29] MEDS ORDERED: NA P133E RC (14:49)
[2022-09-29] MEDS ORDERED: DULO60CA45 PO (14:49)
[2022-09-29] MEDS ORDERED: ACET-868 PO (14:49)
[2022-09-29] MEDS ORDERED: ALBU8.5H8 IH (14:49)
[2022-09-29] MEDS ORDERED: INSU100V27 SQ (14:49)
[2022-09-29] MEDS ORDERED: BUPR2TAB3 SL (14:49)
[2022-09-29] MEDS ORDERED: FENO48TA6 PO (14:49)
[2022-09-29] MEDS ORDERED: ATOR10TA OP (14:49)
[2022-09-29] MEDS ORDERED: METF-866 PO (14:49)
[2022-09-29] MEDS ORDERED: ASPI-1169 PO (14:49)
[2022-09-29] MEDS ORDERED: FLUT1DIS IH (14:49)
[2022-09-29] MEDS ORDERED: BISA10SU11 RC (14:49)
[2022-09-29] MEDS ORDERED: SENN-261 PO (14:50)
[2022-09-29] MEDS ORDERED: GABA600T12 PO (14:50)
[2022-09-29] MEDS ORDERED: FAMO40TA7 PO (14:50)
[2022-09-29] MEDS ORDERED: MAGN400O6 PO (14:50)
[2022-09-29] MEDS ORDERED: GLIP5TAB13 PO (14:50)
[2022-09-29] MEDS ORDERED: NITR0.4T48 SL (14:50)
[2022-09-29] MEDS ORDERED: POLY17PO4 PO (14:50)
[2022-09-29] MEDS ORDERED: LISI2.5T2 PO (14:50)
[2022-09-29] MEDS ORDERED: DICL100G26 TP (14:50)
[2022-09-29 14:59] VITALS: BP 104/43
[2022-09-29 15:00] VITALS: BP 104/43
[2022-09-29 15:40] VITALS: BP 104/43
[2022-09-29] MEDS: METFORMIN 500 MG TABLET PO SCH (17:00)
[2022-09-29] MEDS: METOPROLOL TARTRATE 25 MG TABLET PO SCH (17:04)
--- NOTE | 2022-09-29 17:06 | NUR ---
RN NOTES METFORMIN NOT GIVEN. PATIENT HAS CT ANGIOGRAM OF HEART 3D TOMORROW.
--- NOTE | 2022-09-29 18:40 | NUR ---
CONVENIENCE STORE MANAGER CLOSING NOTES PATIENT AWAKE IN BED USING HIS CELLPHONE. A/OX4. PATIENT IS BREATHING EVENLY AND UNLABORED. ON ROOM AIR. NO SIGNS OF DISTRESS NOTED. PATIENT DENIES ANY PAIN OR DISCOMFORT AT THIS TIME. PATIENT ON TELE MONITOR READING SINUS TACH 110. PATIENT HAS IV ACCESS ON LFA G#20 SL AND RIGHT WRIST G#18 SL, PATENT AND INTACT. SAFETY MEASURES IN PLACE: BED IN LOW,LOCKED POSITION, SIDERAILS UP X2, CALL LIGHT WITHIN REACH. WILL ENDORSE TO THE MINI BAR ATTENDANT NURSE FOR DANIEL.
--- NOTE | 2022-09-29 19:30 | NUR ---
PULP GRINDER FEEDER OPENING NOTES RECEIVED PATIENT AWAKE IN BED. PATIENT IS A/O TIMES 4. NO PAIN NOTED. NO SOB NOTED. NO DISTRESS NOTED. ON TELE MONITOR READING ST 108. ABLE TO MAKE NEEDS KNOWN. IV ACCESS ON THE LFA G # 20 AND RIGHT WRIST G # 18 INTACT. PATIENT IS AMBULATORY AND WALKING AROUND THE UNIT. ALL SAFETY MEASURES IN PLACE. BED LOCKED IN THE LOWEST POSITION. CALL LIGHT AND TABLE IN EASY REACH. SIDE RAILS UP TIMES 2. WILL CONTINUE TO MONITOR CLOSELY.
--- NOTE | 2022-09-29 19:35 | NUR ---
RN NOTES PATIENT COMPLAINS OF LOWER BACK PAIN. PRN FLEXERIL 5 MG PO GIVEN FOR MUSCLE SPASM.
[2022-09-29 20:00] VITALS: BP 119/71
[2022-09-29] MEDS: HYDROCODONE/APAP 5/325MG TABLET PO PRN (20:15)
--- NOTE | 2022-09-29 20:15 | NUR ---
RN NOTES PATIENT COMPLAINS OF LOWER BACK PAIN 12/19 AT 2015. MICHAEL ONE CAPSULE GIVEN FOR PAIN. WILL ASSESS IN 1 HOUR.
[2022-09-29] MEDS ORDERED: DOCUSATE SODIUM 100 MG CAPSULE PO SCH (22:00)
[2022-09-29] MEDS ORDERED: TRAZODONE 50 MG TABLET PO SCH (22:00)
[2022-09-29] MEDS ORDERED: TAMSULOSIN 0.4 MG CAP.SR.24H PO SCH (22:00)
[2022-09-30] VITALS: BP 153/79
[2022-09-30] MEDS: HYDROCODONE/APAP 5/325MG TABLET PO PRN ×3 (00:58→17:20)
--- NOTE | 2022-09-30 00:58 | NUR ---
RN NOTES PATIENT COMPLAINS OF 7/10 LOWER BACK PAIN. PRN NORCO 5/325 , 1 CAPSULE GIVEN FOR PAIN. THE COVER FOR PILL WAS NOT SCANNING IT WAS PARTLY DAMAGE OF THE SCANNING PART, ENTERED THE MEDICATION SCANNING WITH MANUAL BARCODE ENTRY.
[2022-09-30 04:00] VITALS: BP 136/84
[2022-09-30] MEDS: BLOOD SUGAR DIAGNOSTIC 1 EACH STRIP IN SCH ×3 (06:24→17:20)
[2022-09-30] MEDS: INSULIN REGULAR, HUMAN 100 UNIT/ML 3 ML VIAL SQ PRN ×3 (06:25→17:22)
--- NOTE | 2022-09-30 06:45 | NUR ---
CAKE ICER CLOSING NOTES PATIENT AWAKE IN BED. PATIENT IS A/O TIMES 4. NO PAIN NOTED. NO SOB NOTED. NO DISTRESS NOTED. ON TELE MONITOR READING SR. ABLE TO MAKE NEEDS KNOWN. IV ACCESS ON THE LFA G # 20 AND RIGHT WRIST G # 18 INTACT. PATIENT IS AMBULATORY .ALL DUE MEDS GIVEN ORDERED. ALL SAFETY MEASURES IN PLACE. BED LOCKED IN THE LOWEST POSITION. CALL LIGHT AND TABLE IN EASY REACH. SIDE RAILS UP TIMES 2. WILL ENDORSE FOR DANIEL.
--- NOTE | 2022-09-30 07:27 | NUR ---
PRIMARY MILL ROLLER OPENING NOTES RECEIVED PATIENT STANDING IN THE ROOM. A/O X 4, ABLE TO MAKE NEEDS KNOWN. NO C/O PAIN/DISCOMFORT AT THIS TIME. ON METABOLIC SPECIALIST WITH CURRENT READING OF ST WITH BBB 104. IV ACCESS ON THE LFA #20G AND RIGHT WRIST #18G, INTACT. ON ROOM AIR, TOLERATING WELL. SAFETY MEASURES IN PLACE: BED LOCKED AND IN LOWEST POSITION, CALL LIGHT AND TRAY TABLE WITHIN EASY REACH, SIDE RAILS UP X 2. WILL CONTINUE TO MONITOR.
[2022-09-30] MEDS ORDERED: PANTOPRAZOLE 40 MG TABLET.DR PO SCH (07:30)
[2022-09-30] MEDS ORDERED: CHOLECALCIFEROL 1,000 UNIT TABLET (VIT D3) PO SCH (09:00)
[2022-09-30] MEDS ORDERED: predniSONE 20 MG TABLET PO SCH (09:00)
[2022-09-30] MEDS ORDERED: buPROPion SR 100 MG TABLET.ER PO SCH (09:00)
[2022-09-30] MEDS: METFORMIN 500 MG TABLET PO SCH ×2 (09:36→17:00)
[2022-09-30] MEDS: GABAPENTIN 400 MG CAPSULE PO SCH ×4 (09:36→17:20)
[2022-09-30] MEDS: ASPIRIN 81 MG TAB.CHEW PO SCH (09:36)
[2022-09-30] MEDS: METOPROLOL TARTRATE 25 MG TABLET PO SCH ×2 (09:37→17:00)
[2022-09-30 10:59] LABS: CALCIUM, SERUM 8.5 mg/dL (8.5-10.1); CREATININE 0.8 mg/dL (0.6-1.3); MAGNESIUM 1.9 mg/dL (1.8-2.4); PHOSPHORUS 3.2 mg/dL (2.5-4.9); POTASSIUM 3.9 mmol/L (3.5-5.1)
--- NOTE | 2022-09-30 11:00 | NUR ---
RN NOTES PATIENT VERBALIZED BACK PAIN WITH SCALE OF 7/10, NORCO 5-325MG PO PRN GIVEN AT 1055, WILL CONTINUE TO MONITOR.
[2022-09-30 11:18] LABS: BASOPHILS % (AUTO) 0.2 % (0.0-2.0); EOSINOPHILS % (AUTO) 2.2 % (0.0-6.0); HEMATOCRIT 35 % (39-51); HEMOGLOBIN 11.4 g/dL (13.5-17.5); LYMPHOCYTES # (AUTO) 1.5 K/uL (0.8-4.8); LYMPHOCYTES % (AUTO) 16.3 % (20.0-44.0); MEAN CORPUSCULAR HGB CONC 32 g/dl (31.0-36.0); MEAN CORPUSCULAR VOLUME 81 fL (80-96); MONOCYTES # (AUTO) 0.8 K/uL (0.1-1.30); MONOCYTES % (AUTO) 8.9 % (2.0-12.0); NEUTROPHILS # (AUTO) 6.7 K/uL (1.8-8.9); NEUTROPHILS % (AUTO) 72.4 % (43.0-81.0); PLATELET COUNT (AUTO) 371 K/uL (150-450); RED BLOOD CELL COUNT(AUTO) 4.33 MIL/uL (4.5-6.0); WHITE BLOOD COUNT (AUTO) 9.3 K/uL (4.3-11.0)
[2022-09-30 11:45] LABS: THYROID STIMULATING HORMONE 0.805 uIU/mL (0.358-3.74)
[2022-09-30] MEDS ORDERED: NITROGLYCERIN 0.4 MG/TAB BOTTLE ONE (11:45)
[2022-09-30] MEDS ORDERED: METOPROLOL TARTRATE INJ 5 MG/5 ML AMPUL ONE ×3 (11:45→12:27)
[2022-09-30] MEDS ORDERED: IOHEXOL-350 100 ML VIAL IV ONE (11:45)
[2022-09-30] MEDS ORDERED: IV NS 0.9% 250 ML IV ONE (11:46)
[2022-09-30] MEDS ORDERED: CT SWABBABLE VALVE TRANS SET 1 EA INFUS.SET MC ONE (11:46)
[2022-09-30 12:00] VITALS: BP 117/70
[2022-09-30] MEDS: ENOXAPARIN SODIUM 40 MG/0.4 ML DISP.SYRIN SQ SCH ×2 (12:00→13:35)
[2022-09-30] MEDS ORDERED: METOPROLOL TARTRATE 50 MG TABLET PO SCH (12:00)
[2022-09-30] MEDS: METOPROLOL TARTRATE INJ 5 MG/5 ML AMPUL IVP PRN ×10 (12:05→12:50)
[2022-09-30] MEDS ORDERED: NITROGLYCERIN 0.4 MG/TAB BOTTLE SL ONE (12:30)
[2022-09-30 17:00] VITALS: BP 127/76
--- NOTE | 2022-09-30 17:22 | NUR ---
RN NOTES PATIENT VERBALIZED BACK PAIN WITH SCALE OF 7/10 AND WANTS TO TAKE HIS PAIN MEDICINE BEFORE DISCHARGE, NORCO 5-325MG PO PRN GIVEN AT 1720.
--- NOTE | 2022-09-30 17:50 | NUR ---
SUPERVISOR SIGN SHOP NOTES PATIENT DISCHARGED TO [facility] IN STABLE CONDITION. A/O X 4. ON ROOM AIR TOLERATING WELL. V/S TAKEN AND RECORDED. REMOVED IV ACCESS IN LFA AND RIGHT WRIST. DRY DRESSING APPLIED IN SITE. REFINERY OPERATOR VAPOR RECOVERY UNIT REMOVED. ALL BELONGINGS ACCOUNTED FOR. REPORT GIVEN TO YUMIKO THOMPSON, VERBALIZED UNDERSTANDING. MD AND CHARGE NURSE AWARE OF DISCHARGE. PT LEFT THE UNIT AT 1745 VIA GURNEY ACCOMPANIED BY 3 BINDERY MACHINE SETTER.
== END 2022-09-30 17:55 | DRG 243 ==
LOC: ER 06:14 → TELE 09:45
DX: K21.9 Gastro-esophageal reflux disease without esophagitis (principal); E11.9 Type 2 diabetes mellitus without complications; M19.90 Unspecified osteoarthritis, unspecified site; I10 Essential (primary) hypertension; E78.5 Hyperlipidemia, unspecified; Z20.822 Contact with and (suspected) exposure to COVID-19; J44.9 Chronic obstructive pulmonary disease, unspecified; Z79.4 Long term (current) use of insulin; Z88.1 Allergy status to other antibiotic agents; Z79.84 Long term (current) use of oral hypoglycemic drugs; Z79.899 Other long term (current) drug therapy; Z98.1 Arthrodesis status; M54.50 Low back pain, unspecified; G89.29 Other chronic pain
CPT/HCPCS: 36415; 71045-TC; 75574; 80048-TC; 80061-TC; 82962-TC; 83735-TC; 84100-TC; 84443-TC; 84484-TC; 85025-TC; 85378-TC; 87081-TC; 93307-TC; C9803; G0378; G0480; J1170; J1650; J1815; J3490; J7050; J7060; Q9967